=== PATIENT | male | born 1940 | race Caucasian/White ===

== ENCOUNTER → 2021-01-30 06:35 | Outpatient (CLI) | payer MEDICARE, BC, SELFPAY ==
[2021-01-18 13:35] VITALS: BMI 20.7
--- NOTE | 2021-01-30 06:37 | ECHOD_ITS ---
Reason For Study: NON RHEUMATIC MV INS Procedure This was a 2D Doppler, Color Flow transthoracic echocardiogram. The exam was of adequate technical quality. Exam performed in department. Left Ventricle Normal LV size. Left ventricular systolic function is normal. The estimated ejection fraction is 60 %. No evidence for diastolic dysfunction. No regional wall motion abnormalities noted. Right Ventricle Normal RV size. Normal systolic function. Atria Normal left atrium. Normal right atrium. No doppler evidence for ASD. Mitral Valve There is no mitral annular calcification. Normal mitral valve. Mild (1+) mitral valve insufficiency. Tricuspid Valve Normal tricuspid valve. Mild tricuspid valve insufficiency. Right ventricular systolic pressure estimated to be 32 mmHg. Aortic Valve Trisinus/trileaflet aortic valve. Mild focal aortic valve calcification. Pulmonic Valve The pulmonic valve is not well visualized. Great Vessels Normal sized aortic root. Pericardium/Pleural No pericardial effusion. MMode/2D Measurements & Calculations LVIDd: 3.6 cm IVSd: 0.75 cm Ao root diam: 3.4 cm LVIDs: 2.5 cm LVPWd: 0.79 cm RVDd: 3.7 cm FS: 31.1 % LAV(MOD-bp): 42.4 ml LVAd ap4: 30.1 cm2 LVAd ap2: 30.7 cm2 LAV(MOD-bp) Indexed: 21.9 ml/m2 LVLd ap4: 8.5 cm LVLd ap2: 8.5 cm LAV(MOD-sp2): 46.8 ml EDV(MOD-sp4): 87.7 ml EDV(MOD-sp2): 94.6 ml LAV(MOD-sp4): 33.7 ml EDV(sp4-el): 90.8 ml EDV(sp2-el): 93.7 ml LVAs ap4: 18.0 cm2 LVAs ap2: 16.3 cm2 LVLs ap4: 7.0 cm LVLs ap2: 6.9 cm ESV(MOD-sp4): 39.0 ml ESV(MOD-sp2): 33.1 ml ESV(sp4-el): 39.3 ml ESV(sp2-el): 32.5 ml EF(MOD-sp4): 55.5 % EF(MOD-sp2): 65.0 % EF(sp4-el): 56.8 % SV(MOD-sp4): 48.7 ml SV(MOD-sp2): 61.5 ml SV(sp4-el): 51.6 ml LA dimension(2D): 3.1 cm LA A4 area: 13.6 cm2 RA A4 area: 12.5 cm2 Time Measurements MV dec time: 0.28 sec Doppler Measurements & Calculations MV E max mathieu: 57.8 cm/sec Lat Peak E' Mathieu: 8.5 cm/sec Med Peak E' Mathieu: 5.3 cm/sec MV A max mathieu: 73.7 cm/sec E/E' lat: 6.8 E/E' med: 10.9 MV E/A: 0.78 Ao V2 max: 109.8 cm/sec LV V1 max: 105.1 cm/sec PA V2 max: 84.6 cm/sec Ao max P.8 mmHg LV V1 max P.4 mmHg TR max mathieu: 268.5 cm/sec TR max P.8 mmHg ECHO/Echo Complete Interpretation Summary Left ventricular systolic function is normal. The estimated ejection fraction is 60 %. Mild (1+) mitral valve insufficiency. Mild tricuspid valve insufficiency. Mild focal aortic valve calcification. Right ventricular systolic pressure estimated to be 32 mmHg. No evidence for diastolic dysfunction. Ordering Physician: Tylor Price Referring Physician: ABELINO NOBLE Performed By: Apurva Flores, BARRON, RVT
--- NOTE | 2021-01-30 09:14 | STRESSREP_ITS ---
Stress Test Report Date: 01-30-2021 Procedure: Exercise tolerance test/imaging study Indications: Abnormal cardiac CT angiography/calcium score, hyperlipidemia, h ypertension Consent: Per the patient Procedure: The patient exercised on a Howard protocol for 6 minutes completing Stage II achieving a peak heart rate of 144 bpm (102% predicted maximal heart rate) with a peak blood pressure 194/78 mmHg and a peak MET capacity of 7 METs. The baseline ECG demonstrated sinus rhythm. The peak exercise ECG demonstrated no obvious ECG changes. There were no cardiac dysrhythmias pretest, during exercise, or recovery. The functional capacity was considered average. There was no complaint of chest discomfort during exercise or recovery. The examination was discontinued secondary to dyspnea. Impression: 1. Technically adequate (percent predicted maximal heart rate greater than 85%) exercise tolerance test 2. Peak exercise ECG with no obvious ECG changes 3. There were no cardiac dysrhythmias pretest, during exercise, or recovery 4. Nuclear images pending Myocardial perfusion imaging study: Technique: The patient was injected with 11.9 mCi of technetium 99m Cardiolite and subsequently rest SPECT Cardiolite nuclear imaging was obtained in the horizontal long, vertical long, and short axis views. The patient exercised on a Howard protocol for 6 minutes completing Stage II achieving a peak heart rate of 144 bpm (102% predicted maximal heart rate) with a peak blood pressure 194/78 mmHg and a peak MET capacity of 7 METs. The patient was injected with 33.4 mCi of technetium 99m Cardiolite and subsequently stress SPECT Cardiolite nuclear imaging was obtained in the horizontal long, vertical long, and short axis views. A gated Cardiolite study at peak stress was obtained. Interpretation: Rest and stress SPECT Cardiolite nuclear imaging status post realignment, normalization, and attenuation correction, demonstrates the appearance of relative uniform tracer uptake and myocardial perfusion appearing within normal limits. There is end systolic thickening and brightening. The gated Cardiolite study demonstrates myocardial thickening and inward wall motion. The reported LVEF is 70%. Impression: 1. Rest and stress SPECT Cardiolite nuclear imaging demonstrate relative uniform tracer uptake and myocardial perfusion appearing within normal limits. 2. The gated Cardiolite study reports an LVEF of 70%. This note was generated with [employer] software. It may contain incorrect words, spelling, and punctuation that were not noted in checking the note before signing.
== END ==
PROVIDERS: PCP Family Medicine; Referring Provider Internal Medicine Cardiovascular Disease; Visit Provider Internal Medicine Cardiovascular Disease
DX: I51.89 Other ill-defined heart diseases (principal); R93.1 Abnormal findings on diagnostic imaging of heart and coronary circulation; E78.2 Mixed hyperlipidemia
CPT/HCPCS: 78452; 93017; 93306; A9500; A4216

== ENCOUNTER → 2021-02-15 08:47 | Outpatient (CLI) | payer MEDICARE, BC, SELFPAY ==
[2021-01-18 13:35] VITALS: BMI 20.7
[2021-02-15 10:04] LABS: Anion Gap 7 (5-15); BUN 25 mg/dL (7-18); BUN/Creat Ratio 22.3 RATIO (10-20); Calcium,Total 9.2 mg/dL (8.5-10.1); Chloride 104 mmol/L (98-107); Creatinine, Serum 1.12 mg/dL (0.70-1.30); EST Glomerular Filtration Rate 67 mL/min (>60); Est Glom Filt Rate - Afr Amer 81 mL/min (>60); Glucose 84 mg/dL (74-106); Potassium 5.1 mmol/L (3.5-5.1); Sodium Level 138 mmol/L (136-145)
== END ==
PROVIDERS: PCP Family Medicine; Referring Provider Internal Medicine Cardiovascular Disease; Visit Provider Internal Medicine Cardiovascular Disease
DX: I10 Essential (primary) hypertension (principal)
CPT/HCPCS: 36415; 80048

== ENCOUNTER → 2021-03-01 13:08 | Outpatient (CLI) | payer MEDICARE, BC, SELFPAY ==
[2021-03-01 14:38] LABS: Anion Gap 5 (5-15); BUN 19 mg/dL (7-18); BUN/Creat Ratio 19.4 RATIO (10-20); Calcium,Total 9.2 mg/dL (8.5-10.1); Chloride 105 mmol/L (98-107); Creatinine, Serum 0.98 mg/dL (0.70-1.30); EST Glomerular Filtration Rate 79 mL/min (>60); Est Glom Filt Rate - Afr Amer 95 mL/min (>60); Glucose 82 mg/dL (74-106); Potassium 4.5 mmol/L (3.5-5.1); Sodium Level 136 mmol/L (136-145)
== END ==
PROVIDERS: PCP Family Medicine; Referring Provider Internal Medicine Cardiovascular Disease; Visit Provider Internal Medicine Cardiovascular Disease
DX: I10 Essential (primary) hypertension (principal); E78.2 Mixed hyperlipidemia
CPT/HCPCS: 36415; 80048